=== PATIENT | female | born 1990 | race Caucasian/White ===

== ENCOUNTER 2017-04-19 16:23 | Emergency (ER) | payer BC, MEDICAID, OTHER ==
[2017-04-19 17:24] VITALS: BP 107/64
--- NOTE | 2017-04-19 18:22 | UC ---
FLU HPI - HPI Summary HPI Summary: Pt c/o sudden onset of fever, chills, malaise and "upset stomach" X 1 day. Pt has known exposure to flu. - History of Current Complaint Chief Complaint: UCGeneralIllness Stated Complaint: ACHES, FEVER Time Seen by Provider: 04/19/17 17:53 Hx Obtained From: Patient Hx Last Menstrual Period: LAST WK OF March, ?: No Onset/Duration: Sudden Onset, Lasting Days, Still Present Severity Currently: Mild Severity Initially: Mild Pain Intensity: 7 Associated Signs & Symptoms: Positive: Fever, Myalgia Related Hx: Possible Flu/Infectious Exposure - Risk Factors Influenza Risk Factors: Negative - Allergy/Home Medications Allergies/Adverse Reactions: Allergies Allergy/AdvReac Type Severity Reaction Status Date / Time No Known Allergies Allergy Verified 04/19/17 17:17 Home Medications: Home Medications Ibuprofen TAB* [Advil TAB*] 400 mg PO Q6H PRN 04/19/17 [History Confirmed ] PMH/Surg Hx/FS Hx/Imm Hx Previously Healthy: Yes - Surgical History Surgical History: Yes Surgery Procedure, Year, and Place: D/C - Family History Known Family History: Positive: Cardiac Disease - Social History Occupation: Employed Full-time Lives: With Family Alcohol Use: Rare Substance Use Type: None Smoking Status (MU): Former Smoker Type: Cigarettes Amount Used/How Often: Some Day Smoker Length of Time of Smoking/Using Tobacco: 6 Years Have You Smoked in the Last Year: No When Did the Patient Quit Smoking/Using Tobacco: 2015 - Immunization History Most Recent Influenza Vaccination: Not the Season Review of Systems Constitutional: Fever, Chills, Fatigue Skin: Negative Eyes: Negative ENT: Negative Respiratory: Negative Cardiovascular: Negative Gastrointestinal: Negative Genitourinary: Negative Motor: Negative Neurovascular: Negative Musculoskeletal: Myalgia Neurological: Headache Psychological: Negative Is Patient Immunocompromised?: No All Other Systems Reviewed And Are Negative: Yes Physical Exam Triage Information Reviewed: Yes Appearance: Ill-Appearing Vital Signs: Initial Vital Signs Temp 99.1 F 04/19/17 17:19 Pulse 101 04/19/17 17:19 Resp 12 04/19/17 17:19 BP 107/64 04/19/17 17:19 Pulse Ox 99 04/19/17 17:19 Vital Signs Reviewed: Yes Eye Exam: Normal ENT Exam: Other ENT: Positive: Nasal congestion Dental Exam: Normal Neck exam: Normal Respiratory Exam: Normal Cardiovascular Exam: Normal Musculoskeletal Exam: Normal Neurological Exam: Normal Psychological Exam: Normal Skin Exam: Normal Flu Course/Dx - Differential Dx/Diagnosis Differential Diagnosis/HQI/PQRI: Bronchitis, Influenza, Upper Respiratory Infection Provider Diagnoses: Influenza Discharge - Discharge Plan Condition: Critical Disposition: HOME Prescriptions: Oseltamivir CAP* [Tamiflu CAP*] 75 mg PO Q12H #10 cap Patient Education Materials: Influenza (DC) Forms: *Work Release Referrals: Aurea Barajas PA [Primary Care Provider] - If Needed
== END 2017-04-19 18:28 | disposition home or self-care (01) ==
LOC: UCCORT 16:23
DX: J11.1 Influenza due to unidentified influenza virus with other respiratory manifestations (principal); Z20.828 Contact with and (suspected) exposure to other viral communicable diseases; Z87.891 Personal history of nicotine dependence
CPT/HCPCS: 99212; G0463

== ENCOUNTER 2017-05-17 14:58 | Emergency (ER) | payer BC ==
[2017-05-17 16:41] VITALS: BP 110/76
--- NOTE | 2017-05-17 17:02 | UC ---
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 Denies any SOB or swelling in mouth/tongue. Pt states she noticed rash on chest/neck first- tried applying benadryl cream w/ temporary relief- last applied cream 1230 today. Also took loratdine tab yesterday at bedtime w/ no improvement in rash. No new food/detergent/perfumes. States she's had severe allergic rxn to rodriguez couple years ago- came here and got steroid shot. " Sx are better today. she insists there is nothing new or no new exposure. she has not had any nuts or shellfish recently. -she had some swelling to upper lip yesterday, resolved + nausea today. no v/d. -no swelling in lips, tongue or throat. no SOB or wheezing. -denies , LMP 1 wk. - History of Current Complaint Chief Complaint: UCSkin Time Seen by Provider: 05/17/17 16:45 Stated Complaint: SKIN COMPLAINT Hx Last Menstrual Period: ended last week Pain Intensity: 0 - Allergy/Home Medications Allergies/Adverse Reactions: Allergies Allergy/AdvReac Type Severity Reaction Status Date / Time No Known Allergies Allergy Verified 05/17/17 16:34 Review of Systems Constitutional: Negative Skin: Rash Eyes: Negative ENT: Negative Respiratory: Negative Cardiovascular: Negative Gastrointestinal: Nausea Genitourinary: Negative Motor: Negative Neurovascular: Negative Musculoskeletal: Negative Neurological: Negative Psychological: Negative Is Patient Immunocompromised?: No All Other Systems Reviewed And Are Negative: Yes PMH/Surg Hx/FS Hx/Imm Hx Previously Healthy: Yes - Surgical History Surgical History: Yes Surgery Procedure, Year, and Place: D/C - Family History Known Family History: Positive: Cardiac Disease, Diabetes - Social History Alcohol Use: Rare Substance Use Type: None Smoking Status (MU): Former Smoker Type: Cigarettes Amount Used/How Often: Some Day Smoker Length of Time of Smoking/Using Tobacco: 6 Years Have You Smoked in the Last Year: No When Did the Patient Quit Smoking/Using Tobacco: 2015 - Immunization History Most Recent Influenza Vaccination: Not the 2014/2015 Season Physical Exam Triage Information Reviewed: Yes Appearance: Well-Appearing, No Pain Distress, Well-Nourished Vital Signs: Initial Vital Signs Temp 100.2 F 05/17/17 16:35 Pulse 82 05/17/17 16:35 Resp 16 05/17/17 16:35 BP 110/76 05/17/17 16:35 Pulse Ox 100 05/17/17 16:35 Vital Signs Reviewed: Yes Eye Exam: Normal ENT Exam: Normal ENT: Positive: Pharynx normal, TMs normal, Uvula midline, Other - no swelling of lips, tongue, uvula or face Dental Exam: Normal Neck exam: Normal Neck: Positive: Supple, Nontender, No Lymphadenopathy Respiratory Exam: Normal Respiratory: Positive: Lungs clear, Normal breath sounds, No respiratory distress, No accessory muscle use. Negative: Crackles, Rhonchi, Stridor, Wheezing Cardiovascular Exam: Normal Cardiovascular: Positive: RRR, No Murmur, Pulses Normal Abdominal Exam: Normal Abdomen Description: Positive: Nontender, Soft Bowel Sounds: Positive: Present Musculoskeletal Exam: Normal Neurological Exam: Normal Psychological Exam: Normal Skin: Positive: rashes - coalesced macules over chest, left upper abd moderate erythema. faint erythema over b/l cheeks. none on arms, back or legs (resolved). Course/Dx - Course Course Of Treatment: --We discussed risks of prednisone including but not limited to anxiety, agitation, insomnia, GI upset, elevated blood pressures and blood sugar readings, adrenal crisis and avascular necrosis of the hip. - prednisone 80mgs po given at 17:10. -@ 17:40 - rash is ~ 75% better after pred administration. -she is feeling better and ready to go home. Adv to go to ER via 911 if sx worsen again. they understood me well and are agreeable w./ plan - Differential Diagnoses - Skin Complaint Differential Diagnoses: Anaphylaxis, Drug Rash, Urticaria - Diagnoses Provider Diagnoses: Anaphylaxis Discharge - Discharge Plan Condition: Stable Disposition: HOME Prescriptions: EPINEPHrine [Epipen 2-Jun] 0.3 mg IM DAILY PRN #1 inj PRN Reason: anaphylaxis Patient Education Materials: Anaphylaxis (ED) Referrals: Aurea Barajas PA [Primary Care Provider] - 3 Days Additional Instructions: -Start the prednisone tomorrow as you were given 80mgs here tonight, -You should take loratadine daily x 14 days and ranitidine 150mgs 2x/day x 14 days to treat this completely. -You have also been prescribed an epi pen for any future episodes of this nature. Please refer to the patient hand out regarding when to use this and other measures you should take. -I highly recommend that you see an glass blower to have testing done to determine the cause of the allergy to prevent future, potentially fatal exposures.
[2017-05-17] MEDS: predniSONE TAB* 20 MG PO ONE (17:09)
== END 2017-05-17 18:02 | disposition home or self-care (01) ==
LOC: UCCORT 14:58
DX: T78.2XXA Anaphylactic shock, unspecified, initial encounter (principal); L27.0 Generalized skin eruption due to drugs and medicaments taken internally; L50.9 Urticaria, unspecified; Z87.891 Personal history of nicotine dependence
CPT/HCPCS: 99212; G0463; J7512

== ENCOUNTER 2017-10-05 07:55 | Emergency (ER) | payer BC ==
[2017-10-05 08:16] VITALS: BP 120/79
--- NOTE | 2017-10-05 08:54 | UC ---
Dental HPI - HPI Summary HPI Summary: off and on pain in right lower jaw x 10 days, with increase over the past 2 days. No fever; sensitive to chewing and is on soft foods. Hx of right lower jaw pain in the past when she needed to have a root canal on the left side of her mouth. No fever. Using naproxen 660 per day OR advil, pain not completely relieved. Has a dentist whom she can see on Saturday. - History of Current Complaint Chief Complaint: UCDentalProblem Stated Complaint: DENTAL Time Seen by Provider: 10/05/17 08:53 Hx Obtained From: Patient Hx Last Menstrual Period: 09/27/17 Onset/Duration: Gradual Onset, Lasting Days - 120 Severity: Moderate Pain Intensity: 8 Aggravating Factor(s): Cold, Chewing Alleviating Factor(s): OTC Meds Related History: Swelling - along lower gum line. - Allergies/Home Medications Allergies/Adverse Reactions: Allergies Allergy/AdvReac Type Severity Reaction Status Date / Time No Known Allergies Allergy Verified 05/17/17 16:34 Home Medications: Home Medications Ibuprofen 600 mg PO Q8HR 10/05/17 [History Confirmed 10/05/17] Naproxen Sodium [Aleve] 220 mg PO Q12H 10/05/17 [History Confirmed 10/05/17] PMH/Surg Hx/FS Hx/Imm Hx Previously Healthy: Yes - Surgical History Surgical History: Yes Surgery Procedure, Year, and Place: D/C - Family History Known Family History: Positive: Cardiac Disease, Diabetes - Social History Occupation: Employed Full-time Lives: With Family Alcohol Use: Rare Substance Use Type: None Smoking Status (MU): Former Smoker Type: Cigarettes Amount Used/How Often: Some Day Smoker Length of Time of Smoking/Using Tobacco: 6 Years Have You Smoked in the Last Year: No When Did the Patient Quit Smoking/Using Tobacco: 2016 - Immunization History Most Recent Influenza Vaccination: Not the 2015/2015 Season Review of Systems Constitutional: Fatigue Skin: Negative Eyes: Negative ENT: Dental Pain Respiratory: Negative Cardiovascular: Negative Gastrointestinal: Nausea Genitourinary: Negative Motor: Negative Neurovascular: Negative Musculoskeletal: Negative Neurological: Negative Psychological: Negative Is Patient Immunocompromised?: No All Other Systems Reviewed And Are Negative: Yes Physical Exam Triage Information Reviewed: Yes Appearance: Well-Appearing, Pain Distress - mild to moderate Vital Signs: Initial Vital Signs Temp 98.1 F 10/05/17 08:07 Pulse 63 10/05/17 08:07 Resp 14 10/05/17 08:07 BP 120/79 10/05/17 08:07 Pulse Ox 99 10/05/17 08:07 Eyes: Positive: Conjunctiva Clear ENT: Positive: Pharynx normal, TMs normal Dental: Positive: Percussion Tenderness @ - #19, Other: - mild gum line swelling lower dentition on the right. No adenopathy Neck: Positive: Supple, Nontender, No Lymphadenopathy Respiratory: Positive: Lungs clear, Normal breath sounds Cardiovascular: Positive: RRR, No Murmur Musculoskeletal Exam: Normal Neurological Exam: Normal Psychological Exam: Normal Dental Complaint Course/Dx - Course Course Of Treatment: suspected forming dental abscess. Penicillin, increase nsaid's, hydrocodone prn - Differential Dx/Diagnosis Differential Diagnosis/Dx: Dental Abscess, Fractured Tooth, Gingivitis Provider Diagnoses: dental abscess. Discharge - Sign-Out/Discharge Documenting (check all that apply): Patient Departure - Discharge Plan Condition: Stable Disposition: HOME Prescriptions: Hydrocodone/Acetaminophen [Hydrocodone-Acetamin 5-325 mg] 1 each PO Q8H PRN #10 tablet MDD 3 PRN Reason: Pain (Dental) Penicillin VK 500 MG TAB(NF) [Penicillin VK 500 mg Tab] 500 mg PO QID #28 tab Patient Education Materials: Dental Abscess (ED) Referrals: Aurea Barajas PA [Primary Care Provider] - Additional Instructions: begin course of penicillin and arrange dental follow up for next week. Increase naproxen to 2 x 220mg = 440mg twice daily with food. Use hydrocodone sparingly as needed for relief of pain. You can use additional acetaminophen of 650mg up to 3 times daily, alternating with aleve. - Billing Disposition and Condition Condition: STABLE Disposition: Home Images Dental: 1 - percussive tenderness. 2 - reports tenderness
== END 2017-10-05 09:25 | disposition home or self-care (01) ==
LOC: UCCORT 07:55
DX: K04.7 Periapical abscess without sinus (principal); Z87.891 Personal history of nicotine dependence
CPT/HCPCS: 99212; G0463